=== PATIENT | female | born 1965 | race Caucasian/White ===

== ENCOUNTER 2019-03-14 14:56 | Inpatient (IN) | payer MEDICAID ==
[2019-03-14 15:33] LABS: ADD MAN DIFF? NO
[2019-03-14 15:37] LABS: BASOPHILS % 0.3 % (0.0-2.0); EOSINOPHILS # 0.1 10^3/ul (0.0-0.5); EOSINOPHILS % 1.2 % (0.0-7.0); HEMATOCRIT 45.7 % (37.0-47.0); HEMOGLOBIN 15.1 g/dl (12.0-16.0); LYMPHOCYTES # 2.2 10^3/ul (0.8-2.9); LYMPHOCYTES % 22.8 % (15.0-51.0); MEAN CORPUSCULAR HEMOGLOBIN 28.7 pg (29.0-33.0); MEAN CORPUSCULAR VOLUME 86.7 fl (82.0-101.0); MEAN PLATELET VOLUME 8.9 fl (7.4-10.4); MONOCYTE # 0.7 10^3/ul (0.3-0.9); MONOCYTES % 6.7 % (0.0-11.0); NEUTROPHIL # 6.6 10^3/ul (1.6-7.5); NEUTROPHILS % 68.7 % (39.0-77.0); PLATELET COUNT 410 10^3/UL (140-415); RED BLOOD COUNT 5.27 10^6/ul (4.20-5.40); RED CELL DISTRIBUTION WIDTH 13.4 % (11.5-14.5)
[2019-03-14 15:37] LABS: WHITE BLOOD COUNT 9.6 10^3/ul (4.8-10.8)
[2019-03-14 15:59] LABS: ALANINE AMINOTRANSFERASE 35 IU/L (13-69); ALBUMIN 4.4 g/dl (3.3-4.9); ALBUMIN/GLOBULIN RATIO 1.33; ALKALINE PHOSPHATASE 64 IU/L (42-121); ANION GAP 12 (5-13); ASPARTATE AMINO TRANSFERASE 29 IU/L (15-46); BILIRUBIN,INDIRECT 0.6 mg/dl (0-1.1); BILIRUBIN,TOTAL 0.6 mg/dl (0.2-1.3); BLOOD UREA NITROGEN 12 mg/dl (7-20); CALCIUM 9.4 mg/dl (8.4-10.2); CARBON DIOXIDE 24 mmol/L (21-31); CHLORIDE 104 mmol/L (97-110); CREATININE 0.81 mg/dl (0.44-1.00); Estimated GFR > 60 mL/min (>60); GLUCOSE 99 mg/dl (70-220); LIPASE 104 U/L (23-300); POTASSIUM 3.9 mmol/L (3.5-5.1); SODIUM 140 mmol/L (135-144); TOTAL PROTEIN 7.7 g/dl (6.1-8.1)
[2019-03-14 16:43] LABS: ADD UMIC YES; UR ASCORBIC ACID NEGATIVE (NEGATIVE); UR BILIRUBIN (Dip) NEGATIVE (NEGATIVE); UR BLOOD (Dip) 1+ mg/dL (NEGATIVE); UR CLARITY CLEAR (CLEAR); UR COLOR YELLOW (YELLOW); UR GLUCOSE (Dip) NEGATIVE (NEGATIVE); UR KETONES (Dip) TRACE mg/dL (NEGATIVE); UR LEUKOCYTE ESTERASE (Dip) NEGATIVE Leu/ul (NEGATIVE); UR MUCUS FEW /HPF (NONE SEEN); UR NITRITE (Dip) NEGATIVE (NEGATIVE); UR RBC 2 /HPF (0-5); UR TOTAL PROTEIN (Dip) NEGATIVE (NEGATIVE); UR UROBILINOGEN (Dip) NEGATIVE (NEGATIVE); UR WBC 1 /HPF (0-5)
[2019-03-14] MEDS: PIPER-TAZO 3.375 GM IV (PMX) 100 ML IVPB (19:21)
[2019-03-14] MEDS: SOD CHLORIDE 0.9% 1,000 ML IV (19:21)
[2019-03-14] MEDS ORDERED: SOD CHLORIDE 0.9% 1,000 ML IV (19:46)
[2019-03-14] MEDS ORDERED: DOCUSATE SODIUM 100 MG CAP PO (20:00)
[2019-03-14] MEDS ORDERED: NACL 0.9% 3 ML SYG IV (20:00)
[2019-03-14] MEDS ORDERED: morphine 2 MG INJ IV ×2 (20:00→23:00)
[2019-03-14] MEDS ORDERED: BISACODYL (EC) 5 MG TAB PO (20:00)
[2019-03-14] MEDS ORDERED: ACETAMINOPHEN 325 MG TAB PO ×2 (20:00→23:00)
[2019-03-14] MEDS ORDERED: ONDANSETRON 4 MG INJ IV ×2 (20:00→23:00)
[2019-03-14 20:13] LABS: INR 1.01; PROTIME 13.4 Sec (11.9-14.9)
[2019-03-14] MEDS: morphine 4 MG/ML VIAL IV (20:25)
[2019-03-14] MEDS ORDERED: LIDOCAINE 1% (MPF) 30 ML INJ (21:44)
[2019-03-14] MEDS: BUPIVACAINE 0.5% (SDV) 30 ML INJ (22:10)
[2019-03-14] MEDS: LIDOCAINE 1%/EPI (1:100,000) (MDV) 20 ML (22:11)
[2019-03-14] MEDS ORDERED: SEVOFLURANE 15 MIN (22:30)
[2019-03-14] MEDS ORDERED: MIDAZOLAM 1 MG/ML 2 ML INJ (22:37)
[2019-03-14] MEDS ORDERED: HYDROCODONE/APAP (5/325) TAB PO (23:00)
[2019-03-14] MEDS ORDERED: IBUPROFEN 600 MG TAB PO (23:00)
[2019-03-14] MEDS ORDERED: NEOSTIGMINE 3 MG/3 ML SYRINGE ×2 (23:05→23:26)
[2019-03-14] MEDS ORDERED: ROCURONIUM 50 MG INJ (23:05)
[2019-03-14] MEDS ORDERED: LIDOCAINE 2% (SDV) 5 ML INJ (23:05)
[2019-03-14] MEDS ORDERED: PROPOFOL 20 ML (23:05)
[2019-03-14] MEDS ORDERED: GLYCOPYRROLATE 0.4 MG INJ ×2 (23:05→23:26)
[2019-03-14] MEDS ORDERED: ONDANSETRON 4 MG INJ (23:06)
[2019-03-14] MEDS ORDERED: SUGAMMADEX SODIUM 200 MG/2 ML VIAL IV (23:06)
[2019-03-14] MEDS ORDERED: ROPIVACAINE 0.5 % 30 ML VIAL (23:06)
[2019-03-15] MEDS ORDERED: METOCLOPRAMIDE 10 MG INJ IV
[2019-03-15] MEDS ORDERED: MEPERIDINE 25 MG INJ IV
[2019-03-15] MEDS ORDERED: DIPHENHYDRAMINE 50 MG INJ IV
[2019-03-15] MEDS ORDERED: KETOROLAC 30 MG INJ IV
[2019-03-15] MEDS ORDERED: FENTAnyl 50 MCG/ML VIAL IV
[2019-03-15] MEDS ORDERED: ONDANSETRON 4 MG INJ IV
[2019-03-15] MEDS ORDERED: HYDROmorphONE 1 MG/5 ML IV SYRINGE IV ×2
[2019-03-15] MEDS ORDERED: PIPER-TAZO 3.375 GM IV (PMX) 100 ML IVPB
[2019-03-15] MEDS: PIPER-TAZO 3.375 GM IV (PMX) 100 ML IVPB ×3 (01:04→12:14)
[2019-03-15] MEDS: D5W-0.45 NACL + KCL 20 MEQ 1,000 ML IV (01:04)
[2019-03-15] MEDS: ZOLPIDEM 5 MG TAB PO (01:05)
[2019-03-15 05:27] LABS: ADD MAN DIFF? NO
[2019-03-15 05:41] LABS: BASOPHILS % 0.3 % (0.0-2.0); EOSINOPHILS # 0.1 10^3/ul (0.0-0.5); EOSINOPHILS % 0.7 % (0.0-7.0); HEMATOCRIT 44.1 % (37.0-47.0); HEMOGLOBIN 14.3 g/dl (12.0-16.0); MEAN CORPUSCULAR HGB CONC 32.4 g/dl (32.0-37.0); MEAN CORPUSCULAR VOLUME 86.5 fl (82.0-101.0); MEAN PLATELET VOLUME 9.2 fl (7.4-10.4); MONOCYTE # 0.7 10^3/ul (0.3-0.9); NEUTROPHIL # 7.7 10^3/ul (1.6-7.5); NEUTROPHILS % 72.7 % (39.0-77.0); PLATELET COUNT 365 10^3/UL (140-415); RED CELL DISTRIBUTION WIDTH 13.5 % (11.5-14.5)
[2019-03-15 05:41] LABS: WHITE BLOOD COUNT 10.6 10^3/ul (4.8-10.8)
[2019-03-15] MEDS: ENOXAPARIN 40 MG/0.4 ML SYG SC (06:15)
[2019-03-15 06:24] LABS: ALANINE AMINOTRANSFERASE 64 IU/L (13-69); ALBUMIN 3.3 g/dl (3.3-4.9); ALKALINE PHOSPHATASE 56 IU/L (42-121); ANION GAP 6 (5-13); ASPARTATE AMINO TRANSFERASE 85 IU/L (15-46); BLOOD UREA NITROGEN 8 mg/dl (7-20); CALCIUM 8.5 mg/dl (8.4-10.2); CARBON DIOXIDE 28 mmol/L (21-31); CHLORIDE 106 mmol/L (97-110); Estimated GFR > 60 mL/min (>60); GLUCOSE 108 mg/dl (70-220); MAGNESIUM 1.7 mg/dl (1.7-2.5); POTASSIUM 3.9 mmol/L (3.5-5.1); SODIUM 140 mmol/L (135-144); TOTAL PROTEIN 6.3 g/dl (6.1-8.1)
== END 2019-03-15 16:00 | disposition home or self-care (01) | DRG 343 ==
LOC: MS1 03-15 00:30 → E/R 14:56 → REC 19:51
PROC: 0DTJ4ZZ Resection of Appendix, Percutaneous Endoscopic Approach (ICD-10-PCS; principal; 2019-03-14 22:35)
DX: K35.80 Unspecified acute appendicitis (principal)
CPT/HCPCS: 36415; 71045; 74176; 80053; 81001; 83690; 83735; 84703; 85025; 85610; 85730; 88304; 93005; 96374; 99285-25